=== PATIENT | female | born 1950 | race Caucasian/White ===

== ENCOUNTER 2019-09-25 06:54 | Day surgery (SDC) | payer BC, MEDICARE ==
[2019-09-20 11:54] VITALS: BMI 22.6
[~2019-09-25 06:54] MED LIST: LACTATED RINGERS 1,000 ML IV SCH; LIDOCAINE 1% (10MG/ML) FOR IV START INTRADERMA PRN
[2019-09-25] MEDS ORDERED: PROPOFOL 10 MG/ML 20 ML VIAL IV ONE (07:34)
[2019-09-25 07:37] VITALS: TEMP 97.8
[2019-09-25] MEDS ORDERED: SODIUM CHLORIDE 0.9% 1,000 ML IV ONE (08:20)
--- NOTE | 2019-09-25 09:00 | P.PCN ---
Date of Procedure: 09/25/19 Description of Procedure: BRIEF HISTORY: Patient is a 69-year-old female presenting for outpatient colonoscopy or screening for malignant neoplasm of the colon. Patient reports last colonoscopy 6 years ago. No family history of colon cancer. She has had 3 colonoscopies in the past with polyps removed from first colonoscopy but not on her last. PROCEDURE PERFORMED: Colonoscopy with polypectomy, tattoo and Endo Clip placement. PREOPERATIVE DIAGNOSIS: Screening for malignant neoplasm colon, last colonoscopy 6 years ago. ESTIMATED BLOOD LOSS: Minimal. IV sedation per Anesthesia. PROCEDURE: After informed consent was obtained, the patient, was brought into the endoscopy unit. IV sedation was administered by Anesthesia under continuous monitoring. Digital rectal examination was normal. Initially the Olympus CF-190 flexible video colonoscope was then inserted in the rectum, gradually advanced into the cecum without any difficulty. Careful examination was performed as the scope was gradually being withdrawn. Ileocecal valve and the appendiceal orifice were visualized and appeared normal, the terminal ileum was intubated and appeared normal. A large 3.5 cm flat polyp was noted in the distal ascending colon there was removed with hot snare polypectomy in piecemeal fashion. 3 clips were placed over the polypectomy site for hemostasis and injection of 4 mL of ink were used to tattoo the location. Prep was excellent. Mucosa of the cecum, ascending colon, transverse colon, descending colon, sigmoid colon, and rectum appeared otherwise normal. A few scattered diverticula were noted throughout the colon. Retroflexion was performed in the rectum and no lesions were seen. The patient tolerated the procedure well. IMPRESSION: Large flat ascending colon polyp removed in piecemeal fashion with hot snare polypectomy, tattoo and Endo Clip placement 3 at the site of polypectomy. Mild pandiverticulosis. RECOMMENDATIONS: Findings of this examination were discussed with the patient and family. Okay to resume diet and medication. Await pathology from polypectomy. Would recommend follow-up in clinic in one week for results of polypectomy and biopsies with a repeat colonoscopy in 3-6 months given piecemeal resection of the polyp.
[2019-09-25 09:02] VITALS: RESP 16
[2019-09-25 09:21] VITALS: BP 105/68; PULSE 62
== END 2019-09-25 10:00 | disposition home or self-care (01) ==
LOC: ORWHC2ENDO 06:54
PROVIDERS: ATTEND Internal Medicine
DX: Z12.11 Encounter for screening for malignant neoplasm of colon (principal); C18.2 Malignant neoplasm of ascending colon; E07.9 Disorder of thyroid, unspecified; K57.30 Diverticulosis of large intestine without perforation or abscess without bleeding; Z79.890 Hormone replacement therapy; Z98.51 Tubal ligation status; Z98.890 Other specified postprocedural states
CPT/HCPCS: 45385; 88305; J2704; 44404; 45382

== ENCOUNTER → 2019-10-01 | Outpatient (CLI) | payer MEDICARE | END | disposition home or self-care (01) | LOC: LABWHC1 14:55 | PROVIDERS: ATTEND Student in an Organized Health Care Education/Training Program | DX: U07.1 COVID-19 (principal) | CPT/HCPCS: U0003; C9803 ==

== ENCOUNTER → 2019-10-03 | Outpatient (CLI) | payer MEDICARE ==
[2019-10-03 14:58] LABS: African American GFR (CKD) >90 (>60 ml/min/1.73 sqM); Blood Urea Nitrogen 19 mg/dL (7-17); Non-African American GFR(CKD) 78 (>60 ml/min/1.73 sqM)
[2019-10-03 16:27] LABS: Basophils % (A) 1 %; Eosinophils # (A) 0.1 k/uL (0-0.7); Eosinophils % (A) 3 %; HCT 37.5 % (34.0-46.0); HGB 12.2 gm/dL (11.4-16.0); Lymphocytes # (A) 1.5 k/uL (1.0-4.8); Lymphocytes % (A) 30 %; MCH 27.3 pg (25.0-35.0); MCHC 32.4 g/dL (31.0-37.0); MCV 84.2 fL (80.0-100.0); Mean Platelet Volume 7.1; Monocytes # (A) 0.3 k/uL (0-1.0); Monocytes % (A) 7 %; Neutrophils # (A) 2.9 k/uL (1.3-7.7); Neutrophils % (A) 57 %; Platelet Count 238 k/uL (150-450); RBC 4.46 m/uL (3.80-5.40)
[2019-10-03 16:32] LABS: Albumin 4.3 g/dL (3.5-5.0); Calcium 9.6 mg/dL (8.4-10.2); Potassium 4.5 mmol/L (3.5-5.1); Total Bilirubin 0.4 mg/dL (0.2-1.3); Total Protein 6.7 g/dL (6.3-8.2)
--- NOTE | 2019-10-03 16:32 | CT ---
EXAMINATION TYPE: CT ChestAbdPelvis w con DATE OF EXAM: 10/03/2019 COMPARISON: None HISTORY: new dx of colon ca CT DLP: 531.9 mGycm CONTRAST: CT scan of the chest, abdomen and pelvis is performed without Oral Contrast and with IV Contrast, pat ient injected with 100 mL of Isovue 300. CT Chest: LUNGS: The lungs are clear and free of infiltrate or atelectasis. No pulmonary nodule or mass is det ected. No pleural effusion or CT evidence of interstitial lung disease. MEDIASTINUM: Thoracic aorta is of normal caliber. The heart is not enlarged. No evidence for media stinal mass or adenopathy. HILAR STRUCTURES: No evidence for mass. No hilar adenopathy is appreciated. OTHER: No significant abnormality. CONTRAST CT ABDOMEN AND PELVIS FINDINGS: LIVER/GB: No calcified gallstones. No space occupying hepatic lesion. Biliary tree is of normal ca liber. PANCREAS: No inflammation. No distinct mass. SPLEEN: No splenic enlargement. No lesion seen. ADRENALS: No nodule. No thickening. KIDNEYS/BLADDER: No hydronephrosis. No nephrolithiasis. No disctinct renal mass. BOWEL: Normal appendix. Metallic clip noted at the level of the mid ascending colon may be from prio r biopsy. Normal bowel caliber. No inflammation. GENITAL ORGANS: No gross abnormality. LYMPH NODES: No greater than 1cm abdominal or pelvic lymph nodes are appreciated. AORTA: No significant abnormality. OSSEOUS STRUCTURES: No significant abnormality is seen. OTHER: No significant additional abnormality is seen. IMPRESSION: 1. No CT evidence to suggest metastatic disease at this time.
== END | disposition home or self-care (01) ==
LOC: RADCTMAIN 14:20
PROVIDERS: ATTEND Student in an Organized Health Care Education/Training Program
DX: C18.2 Malignant neoplasm of ascending colon (principal)
CPT/HCPCS: 80053; 82378; 82565; 83615; 84520; 85025; 71260; 74177; 36415; Q9967

== ENCOUNTER 2019-10-09 10:45 | Inpatient (IN) | payer MEDICARE ==
[2019-10-03 18:21] VITALS: BMI 22.6
[~2019-10-09 10:45] MED LIST changes: +ALVIMOPAN 12 MG CAPSULE PO ONE; +HEPARIN SODIUM,PORCINE 5,000 UNIT/ML 1 ML VIAL SQ ONE; -LACTATED RINGERS 1,000 ML IV SCH; -LIDOCAINE 1% (10MG/ML) FOR IV START INTRADERMA PRN; +metroNIDAZOLE-NS PMX 500 MG in SALINE 1 100ML.BAG IVPB ONE
[2019-10-09] MEDS ORDERED: DEXAMETHASONE SOD PHOSPHATE 10 MG/ML 1 ML VIAL IV ONE (10:58)
[2019-10-09] MEDS ORDERED: LIDOCAINE 1% (10MG/ML) FOR IV START INTRADERMA PRN (10:58)
[2019-10-09] MEDS: LACTATED RINGERS 1,000 ML IV SCH ×3 (11:21→18:19)
[2019-10-09] MEDS ORDERED: HEPARIN SODIUM,PORCINE 5,000 UNIT/ML 1 ML VIAL ONE (11:24)
[2019-10-09] MEDS ORDERED: ONDANSETRON 4 MG/2 ML VIAL ONE (11:24)
[2019-10-09] MEDS ORDERED: fentaNYL (PF) 50 MCG/ML 2 ML AMP IVP ONE (11:54)
[2019-10-09] MEDS ORDERED: NALOXONE 0.4 MG/ML 1 ML VIAL IV PRN ×2 (12:27→17:10)
[2019-10-09] MEDS ORDERED: diphenhydrAMINE 50 MG/ML 1 ML VIAL IVP PRN (12:27)
[2019-10-09] MEDS ORDERED: INDOCYANINE GREEN 25 MG VIAL IV ONE (12:32)
[2019-10-09] MEDS ORDERED: NEOSTIGMINE 1 MG/ML 10 ML VIAL ONE (12:32)
[2019-10-09] MEDS ORDERED: GLYCOPYRROLATE 0.2 MG/ML 2 ML VIAL ONE (12:32)
[2019-10-09] MEDS ORDERED: BUPIVACAINE (PF) 0.75% 30 ML VIAL ONE (12:32)
[2019-10-09] MEDS ORDERED: fentaNYL (PF) 50 MCG/ML 2 ML AMP ONE (12:32)
[2019-10-09] MEDS ORDERED: ROCURONIUM BROMIDE 10 MG/ML 5 ML VIAL IV ONE (12:32)
[2019-10-09] MEDS ORDERED: PHENYLEPHRINE-0.9% NACL SYG 1 MG/10 ML SYRINGE ONE (12:32)
[2019-10-09] MEDS ORDERED: LIDOCAINE 1% INJ 10MG/ML (20 ML MDV) ONE (12:32)
[2019-10-09] MEDS ORDERED: PROPOFOL 10 MG/ML 20 ML VIAL IV ONE (12:32)
--- NOTE | 2019-10-09 12:57 | P.ANPRN ---
Procedure Note - Anesthesia - Epidural/Spinal Epidural Time Out Performed: Yes Date of Procedure: 10/09/19 Procedure Start Time: 11:53 Procedure Stop Time: 12:07 Location of Patient: PreOp Indication: Acute Post-Operative Pain, Requested by Surgeon Sedation Type: Sedate with meaningful contact maintained Preparation: Sterile Prep Position: Sitting Catheter Depth at Skin (cm): 12 Catheter: Indwelling Needle Guage: 18 Injectate: Test Dose Lidocaine1.5% w/1:200,000 epi Blood Aspirated: No Pain Paresthesia on Injection Noted: No Events: Uneventful and Well Tolerated (T7-T8 level, TATA at 4.5 cm)
[2019-10-09] MEDS ORDERED: BUPIVACAINE (PF) 0.5% 30 ML VIAL SQ ONE (13:04)
[2019-10-09] MEDS ORDERED: LACTATED RINGERS 1,000 ML IV ONE ×4 (13:43→17:55)
[2019-10-09] MEDS ORDERED: ONDANSETRON 4 MG/2 ML VIAL IVP ONE (17:00)
[2019-10-09] MEDS ORDERED: ONDANSETRON 4 MG/2 ML VIAL IVP PRN (17:10)
--- NOTE | 2019-10-09 17:10 | P.OP ---
Date of Procedure: 10/09/19 Preoperative Diagnosis: Colon cancer Postoperative Diagnosis: Same Procedure(s) Performed: Robotic assisted right hemicolectomy Anesthesia: DIA Surgeon: Brendan Burnett Estimated Blood Loss (ml): 25 Condition: stable Disposition: PACU Indications for Procedure: Adenocarcinoma of right colon Description of Procedure: Patient was brought into the operative suite remained in the supine position underwent general endotracheal anesthesia per Department of anesthesia she was prepped and draped in the usual sterile fashion timeout was performed correct patient correct procedure correct site was verified. A 5 mm incision was made at palmers point in the left upper quadrant. Under direct visualization the abdomen was entered with a 5 mm Visiport and insufflated no injuries were noted. A suprapubic 8 mm port was placed under direct visualization and 8 mm cephalad from this a second 8 mm port was placed under direct visualization equidistant between this port and the 5 mm port A third 8 mm port was placed. The 5 mm port was then upsized to a 12 mm port and the robot was docked. Attention was turned to the right lower quadrant the cecum was retracted anteriorly the duodenum was identified the ileocolic pedicle was identified a window was made into the retroperitoneum the duodenum was identified again through the retroperitoneum and swept posteriorly and medially. The ileocolic pedicle was then dissected and ligated with an energy sealing device. The dissection then proceeded in a medial to lateral fashion the hepato-colic ligament was taken down being sure to visualize the duodenum. There was some scar tissue from the previous tattoo noted in the descending colon at the hepatic flexure. This was taken down with aid of electrocautery and sharp dissection. The right colon was then mobilized and the terminal ileum was transected approximately 8 cm from the ileocecal valve with a 60 mm blue load stapler. The transverse was transected with a 60 mm blue load stapler preserving the middle colic artery. The mesentery was then ligated at the base with the energy sealing device in the right colon was placed in the right upper quadrant. The ileum was aligned with the transverse colon ICG dye was injected and both were noted to have good blood flow. A [id number] functional end and isoperistaltic intracorporeal anastomosis was created 3-0 Vicryl stay sutures were placed to align the small bowel to the transverse colon on enterotomy was made in the small bowel and the colon the stapler a 60 mm blue load stapler was placed the bowels were aligned and this created a common channel. Hemostasis was noted. The common enterotomy was then closed using a 3-0 vlock suture in a running fashion followed by interrupted 3-0 Vicryl sutures in a Lembert fashion. At this point the robot was undocked the specimen was removed through the 12 mm port site which was widened and an felicita wound protector was placed prior to removing the specimen. The abdomen was then copiously irrigated and suctioned until clear hemostasis was noted all ports removed the 12 mm port site was closed in 2 layers of 0 Vicryl for the fascia followed by 4-0 Monocryl subcuticular closure for the skin on all the port sites. Sterile dressing was applied patient tolerated the procedure well there are no apparent complications
[2019-10-09] MEDS: ROPIVACAINE 250 MG, fentaNYL (PF) 1,250 MCG in SODIUM CHLORIDE 0.9% 175 ML EPIDURAL PRN (17:16)
[2019-10-09] MEDS: ACETAMINOPHEN IV (For NPO) 1,000 MG in EMPTY BAG 1 BAG IVPB ONE ×2 (17:35→17:50)
[2019-10-09] MEDS: ONDANSETRON 4 MG/2 ML VIAL IVP PRN (19:46)
--- NOTE | 2019-10-09 21:38 | P.CONS ---
History of Present Illness - Reason for Consult Consult date: 10/09/19 medical management Requesting physician: Brendan Burnett - Chief Complaint Abdominal surgery - History of Present Illness Consultation: This is a 69-year-old patient follows a Dr. Real. Patient on September 24 had undergone colonoscopy by Dr. Elizabeth. Was found of a polyp that was removed. 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 Patient today underwent a right hemicolectomy by Dr. burnett. Postprocedure slight abdominal discomfort. No nausea vomiting. Breathing is stable. Denies any cardiac history. Laying in bed. Patient has an abdominal binder. On nothing by mouth diet. Getting IV fluids. No fever no chills. Review of systems: GEN.: Tired EYES: None HEENT: None NECK: None RESPIRATORY: None CARDIOVASCULAR: None GASTROINTESTINAL: As above GENITOURINARY: None MUSCULOSKELETAL: None LYMPHATICS: None HEMATOLOGICAL: None PSYCHIATRY: None NEUROLOGICAL: None Past medical history to include: Hypothyroid, malignant-chronic Polyp, osteoarthritis the knees Social history: Does not smoke. Alcohol occasionally. Family history: Reviewed, noncontributory to presentation Physical examination: VITAL SIGNS: 97.7, 77, 16, 118/69, 96% room air GENERAL: [BMI 22.4, laying in bed, awake. EYES: Pupils equal. Conjunctiva normal. HEENT: External appearance of nose and ears normal, oral cavity grossly normal. NECK: JVD not raised; masses not palpable. HEART: First and second heart sounds are normal; no edema. LUNGS: Respiratory rate normal; clear to auscultation. ABDOMEN: Soft, tender, binder in place, liver spleen not palpable, no masses palpable. MUSCLE skeletal: Evidence of OA PSYCH: Alert and oriented x3; mood and affect normal. NEUROLOGICAL: Cranial nerves grossly intact; no facial asymmetry, power and sensation grossly intact. LYMPHATICS: No lymph nodes palpable in the axilla and neck INVESTIGATIONS, reviewed in the clinical context: From October 02: White count 5 hemoglobin 12.2 platelets 238 potassium 4.5 creatinine 0.79 Assessment: -Right hemicolectomy for colon polyp that came back showing adenocarcinoma with high-grade dysplasia -Primary on to 30s. The knees -Hypothyroid Plan: Patient got epidural. Also getting IV Ancef and Flagyl. Home medications resumed. Getting IV fluids. Venodyne boots for DVT prophylaxis. Care was discussed with the patient. Questions were answered. Thank you Dr. burnett Past Medical History Past Medical History: Thyroid Disorder Additional Past Medical History / Comment(s): past hx. colon polyps History of Any Multi-Drug Resistant Organisms: None Reported Past Surgical History: Orthopedic Surgery, Tubal Ligation Additional Past Surgical History / Comment(s): cystoscopy w/ureter surg., knee surg., ORIF wrist Past Anesthesia/Blood Transfusion Reactions: Postoperative Nausea & Vomiting (PONV) Past Psychological History: No Psychological Hx Reported Smoking Status: Never smoker Past Alcohol Use History: Occasional Past Drug Use History: None Reported - Past Family History Mother Family Medical History: No Reported History Medications and Allergies Home Medications Medication Instructions Recorded Confirmed Type Levothyroxine Sodium [Synthroid] 88 mcg PO DAILY 11/23/13 10/09/19 History Turmeric Root Extract [Turmeric] 500 mg PO DAILY 09/20/19 10/09/19 History Cholecalciferol [Vitamin D3 (25 1,000 unit PO DAILY 10/03/19 10/09/19 History Mcg = 1000 Iu)] Estradiol [Vagifem] 10 mcg VG DIRECTED 10/03/19 10/09/19 History Fluticasone Nasal [place] [Flonase 1 spray EA NOSTRIL HS 10/03/19 10/09/19 History Nasal [place]] Levocetirizine Dihydrochloride 5 mg PO HS 10/03/19 10/09/19 History [Xyzal] Allergies Allergy/AdvReac Type Severity Reaction Status Date / Time No Known Allergies Allergy Verified 10/09/19 11:06 Physical Exam Vitals: Vital Signs Temp Pulse Resp BP Pulse Ox 10/09/19 19:53 16 10/09/19 17:43 52 L 16 98/62 92 L 10/09/19 17:28 55 L 16 100/59 92 L 10/09/19 17:13 56 L 16 97/60 93 L 10/09/19 16:57 96.8 F L 66 18 105/61 92 L 10/09/19 12:09 67 15 143/74 99 10/09/19 11:20 97.7 F 77 16 118/69 96 Intake and Output 10/09/19 10/09/19 10/09/19 06:59 14:59 22:59 Intake Total 3950 353.8 Output Total 200 Balance 3950 153.8 Intake: IV 3950 353.8 Output: Urine 175 Estimated Blood Loss 25 Other: Voiding Method Incontinent Weight 62.9 kg 62.9 kg Results Labs: Abnormal Lab Results - Last 24 Hours (Table) 10/04/19 Range/Units 13:13 Crossmatch See Detail
[2019-10-09] MEDS: FAMOTIDINE 20 MG/2 ML VIAL IV SCH (22:07)
[2019-10-10] MEDS: metroNIDAZOLE-NS PMX 500 MG in SALINE 1 100ML.BAG IVPB SCH ×2 (00:22→08:04)
[2019-10-10] MEDS: LACTATED RINGERS 1,000 ML IV SCH ×3 (00:24→22:01)
[2019-10-10] MEDS: LEVOTHYROXINE 88 MCG TAB PO SCH (05:37)
--- NOTE | 2019-10-10 07:02 | P.PN ---
Progress Note - Text 10/10/19 648am 69-year-old female status post bowel resection. Patient has an epidural catheter for postop pain control with the solution running at 6 mL an hour with a VAS of 1. No motor or sensory deficits noted. Patient has mild complaints of nausea but does not have an NG tube. Plan to continue epidural infusion
[2019-10-10] MEDS: ALVIMOPAN 12 MG CAPSULE PO SCH ×2 (08:03→21:58)
[2019-10-10] MEDS: FAMOTIDINE 20 MG/2 ML VIAL IV SCH ×2 (08:03→21:58)
[2019-10-10] MEDS: ENOXAPARIN 40 MG/0.4 ML SYRINGE SQ SCH (08:04)
[2019-10-10 08:50] LABS: Basophils % (A) 0 %; Eosinophils % (A) 0 %; HCT 30.9 % (34.0-46.0); Lymphocytes # (A) 0.7 k/uL (1.0-4.8); Lymphocytes % (A) 12 %; MCH 27.3 pg (25.0-35.0); MCHC 32.5 g/dL (31.0-37.0); MCV 83.8 fL (80.0-100.0); Mean Platelet Volume 7.3; Monocytes # (A) 0.5 k/uL (0-1.0); Monocytes % (A) 8 %; Neutrophils % (A) 79 %; Platelet Count 184 k/uL (150-450); RBC 3.69 m/uL (3.80-5.40); RDW 12.8 % (11.5-15.5); WBC 6.3 k/uL (3.8-10.6)
[2019-10-10 08:57] LABS: ALT 10 U/L (4-34); AST 23 U/L (14-36); African American GFR (CKD) >90 (>60 ml/min/1.73 sqM); Albumin 2.9 g/dL (3.5-5.0); Alkaline Phosphatase 34 U/L (38-126); Anion Gap 5 mmol/L; Blood Urea Nitrogen 10 mg/dL (7-17); Calcium 8.2 mg/dL (8.4-10.2); Carbon Dioxide 25 mmol/L (22-30); Chloride 101 mmol/L (98-107); Glucose 104 mg/dL (74-99); Non-African American GFR(CKD) >90 (>60 ml/min/1.73 sqM); Potassium 4.3 mmol/L (3.5-5.1); Sodium 131 mmol/L (137-145); Total Bilirubin 0.3 mg/dL (0.2-1.3)
--- NOTE | 2019-10-10 10:59 | P.PN ---
Subjective Progress Note Date: 10/10/19 Patient is doing well this morning. She did have some nausea last night. Pain is well controlled. VSSAF. No flatus or BM Objective - Vital Signs Vital signs: Vital Signs Temp 98.7 F 10/10/19 07:08 Pulse 69 10/10/19 07:08 Resp 17 10/10/19 07:08 BP 99/62 10/10/19 07:08 Pulse Ox 93 L 10/10/19 07:08 Intake & Output 10/09/19 10/10/19 10/10/19 18:59 06:59 18:59 Intake Total 4303.8 900 Output Total 200 600 Balance 4103.8 -600 900 Weight 62.9 kg 62.9 kg Intake: IV 4303.8 900 Lactated Ringers 1,000 ml 800 @ 100 mls/hr IV .Q10H [facility] Rx#:[id number] metroNIDAZOLE-NS PMX 500 100 mg In Saline 1 100ml.bag @ 100 mls/hr IVPB Q8HR [facility] Rx#:[id number] Output: Urine 175 600 Estimated Blood Loss 25 Other: Voiding Method Incontinent Indwelling Catheter - Constitutional General appearance: Present: cooperative - Respiratory Details: Nonlabored - Cardiovascular Rhythm: regular - Gastrointestinal Gastrointestinal Comment(s): S/ND expected TTP. Incisions CDI - Psychiatric Psychiatric: Present: A&O x's 3 - Labs CBC & Chem 7: 10/10/19 07:25 10/10/19 07:25 Labs: Abnormal Lab Results - Last 24 Hours (Table) 10/04/19 10/10/19 10/10/19 Range/Units 13:13 07:25 07:25 RBC 3.69 L (3.80-5.40) m/uL Hgb 10.0 L D (11.4-16.0) gm/dL Hct 30.9 L (34.0-46.0) % Lymphocytes # 0.7 L (1.0-4.8) k/uL Sodium 131 L (137-145) mmol/L Glucose 104 H (74-99) mg/dL Calcium 8.2 L (8.4-10.2) mg/dL Alkaline Phosphatase 34 L (38-126) U/L Total Protein 5.0 L (6.3-8.2) g/dL Albumin 2.9 L (3.5-5.0) g/dL Crossmatch See Detail Assessment and Plan Assessment: POD#1 Robotic assisted right hemicolectomy Plan: Patient is doing well, continue with ice chips and sips as tolerated. Instructed the patient to use IS and encouraged ambulation and up to chair. Lovenox and SCD for DVT prophylaxis. Await return of bowel function
--- NOTE | 2019-10-10 17:16 | P.PN ---
Progress Note - Text Progress Note Date: 10/10/19 - Chief Complaint Abdominal surgery Consultation: This is a 69-year-old patient follows a Dr. Real. Patient on September 24 had undergone colonoscopy by Dr. Elizabeth. Was found of a polyp that was removed. 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 Patient today underwent a right hemicolectomy by Dr. shea. Postprocedure slight abdominal discomfort. No nausea vomiting. Breathing is stable. Denies any cardiac history. Laying in bed. Patient has an abdominal binder. On nothing by mouth diet. Getting IV fluids. No fever no chills. Today-sitting up. Feeling a bit better. Remains nothing by mouth except for ice chips. No flatus. No nausea vomiting. Pain control. Review of systems: Was done for constitutional, cardiovascular, GI, pulmonary. relevant finding as above Active Medications Alvimopan (Entereg) 12 mg PO BID [facility] Stop: 10/16/19 21:01 Last Admin: 10/10/19 08:03 Dose: 12 mg Documented by: Diphenhydramine HCl (Benadryl) 25 mg IVP Q6HR PRN PRN Reason: Itching Enoxaparin Sodium (Lovenox) 40 mg SQ DAILY [facility] Last Admin: 10/10/19 08:04 Dose: 40 mg Documented by: Famotidine (Pepcid) 20 mg IV BID [facility] Last Admin: 10/10/19 08:03 Dose: 20 mg Documented by: Ropivacaine 250 mg/ Fentanyl Citrate 1,250 mcg/ Sodium Chloride 250 mls @ 0 mls/hr EPIDURAL .Q0M PRN; Protocol PRN Reason: Pain Control Last Admin: 10/09/19 17:16 Dose: 3.8 mls Documented by: Lactated Ringer's (Lactated Ringers) 1,000 mls @ 100 mls/hr IV .Q10H [facility] Last Admin: 10/10/19 12:13 Dose: 100 mls/hr Documented by: Levothyroxine Sodium (Synthroid) 88 mcg PO DAILY@0630 [facility] Last Admin: 10/10/19 05:37 Dose: 88 mcg Documented by: Lidocaine HCl (.Xylocaine 1% Inj (10mg/Ml) For Iv Start) 0.1 ml INTRADERMA PER PROTOCOL PRN PRN Reason: IV Start Last Admin: 10/09/19 11:20 Dose: 0.1 ml Documented by: Naloxone HCl (Narcan) 0.2 mg IV Q2M PRN PRN Reason: Opioid Reversal Ondansetron HCl (Zofran) 4 mg IVP Q8HR PRN PRN Reason: Nausea And Vomiting Last Admin: 10/09/19 19:46 Dose: 4 mg Documented by: Physical examination: VITAL SIGNS: 98.7, 69, 17, 99/62, 93% room air GENERAL: Laying in bed, comfortable EYES: Pupils equal. Conjunctiva normal. HEENT: External appearance of nose and ears normal, oral cavity grossly normal. NECK: JVD not raised; masses not palpable. HEART: First and second heart sounds are normal; no edema. LUNGS: Respiratory rate normal; clear to auscultation. ABDOMEN: Soft, mild tender, no guarding rigidity, binder in place, liver spleen not palpable, no masses palpable. MUSCLE skeletal: Evidence of OA PSYCH: Alert and oriented x3; mood and affect normal. INVESTIGATIONS, reviewed in the clinical context: White count 6.3 hemoglobin 10 potassium 4.3 creatinine 0.5 to albumin 2.9 From October 02: White count 5 hemoglobin 12.2 platelets 238 potassium 4.5 creatinine 0.79 Assessment: -Right hemicolectomy for colon polyp that came back showing adenocarcinoma with high-grade dysplasia -Primary osteoarthritis The knees -Hypothyroid -Hypoalbuminemia-acute phase reactant -Mild hyponatremia -Acute postop blood loss anemia expected from surgery Plan: Remains on epidural. Also IV Ancef and Flagyl. Getting IV fluids. Venodyne boots for DVT prophylaxis. Care was discussed with the patient. Thank you Dr. shea
[2019-10-10] MEDS: ROPIVACAINE 250 MG, fentaNYL (PF) 1,250 MCG in SODIUM CHLORIDE 0.9% 175 ML EPIDURAL PRN (23:10)
[2019-10-11] MEDS: LEVOTHYROXINE 88 MCG TAB PO SCH (06:02)
[2019-10-11] MEDS: ONDANSETRON 4 MG/2 ML VIAL IVP PRN ×2 (06:04→14:57)
--- NOTE | 2019-10-11 07:11 | P.PN ---
Progress Note - Text Date: 10/11/2019 Time: The patient is status post, bowel resection, postoperative day number 2 The patient has no complaintsof headache. The patient has incurred some mild nausea, this was treated this morning,the patient is having some relief. The patient does not complain of any lower extremity numbness or weakness. The epidural is running at[6] mL per hour. VAS 0-1-10. The epidural will be maintained and adjusted as needed.
[2019-10-11] MEDS: LACTATED RINGERS 1,000 ML IV SCH ×2 (08:10→21:13)
[2019-10-11] MEDS: FAMOTIDINE 20 MG/2 ML VIAL IV SCH ×2 (08:10→21:13)
[2019-10-11] MEDS: ENOXAPARIN 40 MG/0.4 ML SYRINGE SQ SCH (08:10)
[2019-10-11] MEDS: ALVIMOPAN 12 MG CAPSULE PO SCH (08:19)
--- NOTE | 2019-10-11 14:09 | P.PN ---
Subjective Progress Note Date: 10/11/19 Patient is doing very well nausea is improved somewhat, she is passing BM x 2. Pain is well controlled. Ambulating in halls. Using IS Objective - Vital Signs Vital signs: Vital Signs Temp 98.3 F 10/11/19 07:00 Pulse 75 10/11/19 07:00 Resp 16 10/11/19 07:00 BP 120/71 10/11/19 07:00 Pulse Ox 96 10/11/19 07:00 Intake & Output 10/10/19 10/11/19 10/11/19 18:59 06:59 18:59 Intake Total 900 Output Total 550 Balance 900 -550 Intake: IV 900 Lactated Ringers 1,000 ml 800 @ 100 mls/hr IV .Q10H [facility] Rx#:[id number] metroNIDAZOLE-NS PMX 500 100 mg In Saline 1 100ml.bag @ 100 mls/hr IVPB Q8HR [facility] Rx#:[id number] Output: Urine 550 Other: Voiding Method Indwelling Catheter Indwelling Catheter Indwelling Catheter # Bowel Movements 1 - Constitutional General appearance: Present: cooperative - Respiratory Details: nonlabored - Cardiovascular Rhythm: regular - Gastrointestinal Gastrointestinal Comment(s): S/NT/ND Incisions are CDI - Labs CBC & Chem 7: 10/10/19 07:25 10/10/19 07:25 Assessment and Plan Assessment: POD#2 Robotic assisted right hemicolectomy Plan: Patient may start on a clear liquid diet as tolerated. DC epidural tomorrow and anticipate DC home when patient is tolerating diet, possibly tomorrow. DC cohen when epidural is DC. Continue ambulating in halls and IS. Lovenox for DVT prophy.
--- NOTE | 2019-10-11 18:06 | P.PN ---
Progress Note - Text Progress Note Date: 10/11/19 - Chief Complaint Abdominal surgery Consultation: This is a 69-year-old patient follows a Dr. Real. Patient on September 24 had undergone colonoscopy by Dr. Elizabeth. Was found of a polyp that was removed. 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 Patient today underwent a right hemicolectomy by Dr. shea. Postprocedure slight abdominal discomfort. No nausea vomiting. Breathing is stable. Denies any cardiac history. Laying in bed. Patient has an abdominal binder. On nothing by mouth diet. Getting IV fluids. No fever no chills. Today-. had a bowel movement.. Pain control. Did sit up in a chair. No nausea vomiting. Review of systems: Was done for constitutional, cardiovascular, GI, pulmonary. relevant finding as above Active Medications Diphenhydramine HCl (Benadryl) 25 mg IVP Q6HR PRN PRN Reason: Itching Enoxaparin Sodium (Lovenox) 40 mg SQ DAILY [facility] Last Admin: 10/11/19 08:10 Dose: 40 mg Documented by: Famotidine (Pepcid) 20 mg IV BID [facility] Last Admin: 10/11/19 08:10 Dose: 20 mg Documented by: Ropivacaine 250 mg/ Fentanyl Citrate 1,250 mcg/ Sodium Chloride 250 mls @ 0 mls/hr EPIDURAL .Q0M PRN; Protocol PRN Reason: Pain Control Last Admin: 10/10/19 23:10 Dose: 6 mls/hr Documented by: Lactated Ringer's (Lactated Ringers) 1,000 mls @ 100 mls/hr IV .Q10H [facility] Last Admin: 10/11/19 08:10 Dose: 100 mls/hr Documented by: Levothyroxine Sodium (Synthroid) 88 mcg PO DAILY@0630 [facility] Last Admin: 10/11/19 06:02 Dose: 88 mcg Documented by: Lidocaine HCl (.Xylocaine 1% Inj (10mg/Ml) For Iv Start) 0.1 ml INTRADERMA PER PROTOCOL PRN PRN Reason: IV Start Last Admin: 10/09/19 11:20 Dose: 0.1 ml Documented by: Naloxone HCl (Narcan) 0.2 mg IV Q2M PRN PRN Reason: Opioid Reversal Ondansetron HCl (Zofran) 4 mg IVP Q8HR PRN PRN Reason: Nausea And Vomiting Last Admin: 10/11/19 14:57 Dose: 4 mg Documented by: Physical examination: VITAL SIGNS: 98.5, 60, 16, 1 35/80, 95% room air GENERAL: Propper in bed, comfortable EYES: Pupils equal. Conjunctiva normal. HEENT: External appearance of nose and ears normal, oral cavity grossly normal. NECK: JVD not raised; masses not palpable. HEART: First and second heart sounds are normal; no edema. LUNGS: Respiratory rate normal; clear to auscultation. ABDOMEN: Soft, mild tender, no guarding rigidity, binder in place, liver spleen not palpable, no masses palpable. MUSCLE skeletal: Evidence of OA PSYCH: Alert and oriented x3; mood and affect normal. INVESTIGATIONS, reviewed in the clinical context: White count 6.3 hemoglobin 10 potassium 4.3 creatinine 0.5 to albumin 2.9 From October 02: White count 5 hemoglobin 12.2 platelets 238 potassium 4.5 creatinine 0.79 Assessment: -Right hemicolectomy for colon polyp that came back showing adenocarcinoma with high-grade dysplasia -Primary osteoarthritis The knees -Hypothyroid -Hypoalbuminemia-acute phase reactant -Mild hyponatremia -Acute postop blood loss anemia expected from surgery Plan: Remains on epidural. Getting IV fluids. patient be started on clear liquids tonight per surgery. Discussed with patient. encouraged up in a chair and walk with assistance. Thank you Dr. shea
[2019-10-12] MEDS: ROPIVACAINE 250 MG, fentaNYL (PF) 1,250 MCG in SODIUM CHLORIDE 0.9% 175 ML EPIDURAL PRN (03:31)
[2019-10-12] MEDS: LACTATED RINGERS 1,000 ML IV SCH ×2 (05:19→16:15)
[2019-10-12] MEDS: LEVOTHYROXINE 88 MCG TAB PO SCH (05:56)
[2019-10-12 07:09] VITALS: PULSE 73; RESP 20
[2019-10-12 08:43] LABS: Basophils % (A) 1 %; Eosinophils % (A) 1 %; HGB 10.4 gm/dL (11.4-16.0); Lymphocytes # (A) 0.9 k/uL (1.0-4.8); Lymphocytes % (A) 15 %; MCH 27.3 pg (25.0-35.0); MCHC 32.5 g/dL (31.0-37.0); MCV 83.9 fL (80.0-100.0); Mean Platelet Volume 7.6; Monocytes # (A) 0.4 k/uL (0-1.0); Monocytes % (A) 8 %; Neutrophils # (A) 4.4 k/uL (1.3-7.7); Neutrophils % (A) 76 %; Platelet Count 204 k/uL (150-450); RBC 3.81 m/uL (3.80-5.40); RDW 12.7 % (11.5-15.5); WBC 5.9 k/uL (3.8-10.6)
[2019-10-12 08:47] LABS: African American GFR (CKD) >90 (>60 ml/min/1.73 sqM); Anion Gap 5 mmol/L; Blood Urea Nitrogen 10 mg/dL (7-17); Carbon Dioxide 24 mmol/L (22-30); Chloride 99 mmol/L (98-107); Glucose 85 mg/dL (74-99); Non-African American GFR(CKD) >90 (>60 ml/min/1.73 sqM); Potassium 3.9 mmol/L (3.5-5.1); Sodium 128 mmol/L (137-145)
[2019-10-12] MEDS: FAMOTIDINE 20 MG/2 ML VIAL IV SCH (08:56)
[2019-10-12] MEDS: ENOXAPARIN 40 MG/0.4 ML SYRINGE SQ SCH (08:56)
--- NOTE | 2019-10-12 09:37 | P.PN ---
Subjective Progress Note Date: 10/12/19 Patient is doing very well nausea is resolved, she is tolerating clears, she is passing flatus and BM. Pain is well controlled. Ambulating in halls. Using IS Objective - Vital Signs Vital signs: Vital Signs Temp 98.2 F 10/12/19 07:00 Pulse 73 10/12/19 07:00 Resp 20 10/12/19 07:00 BP 131/84 10/12/19 07:00 Pulse Ox 93 L 10/12/19 07:00 Intake & Output 10/11/19 10/12/19 10/12/19 18:59 06:59 18:59 Intake Total 870.1 200 Output Total 1800 Balance -929.9 200 Intake: IV 400 Lactated Ringers 1,000 ml 400 @ 100 mls/hr IV .Q10H VERONICA Rx#:[id number] Intake, IV Titration 170.1 Amount Ropivacaine 250 mg 170.1 fentaNYL (PF) 1,250 mcg In Sodium Chloride 0.9% 175 ml @ Per Protocol EPIDURAL .Q0M PRN Rx#: [id number] Oral 300 200 Output: Urine 1800 Other: Voiding Method Indwelling Catheter Indwelling Catheter Indwelling Catheter # Voids 3 1 # Bowel Movements 1 - Constitutional General appearance: Present: cooperative - Respiratory Details: non labored - Cardiovascular Rhythm: regular - Gastrointestinal Gastrointestinal Comment(s): s/nt/nd incisions CDI - Psychiatric Psychiatric: Present: A&O x's 3 - Labs CBC & Chem 7: 10/12/19 08:00 10/12/19 08:00 Labs: Abnormal Lab Results - Last 24 Hours (Table) 10/12/19 10/12/19 Range/Units 08:00 08:00 Hgb 10.4 L (11.4-16.0) gm/dL Hct 32.0 L (34.0-46.0) % Lymphocytes # 0.9 L (1.0-4.8) k/uL Sodium 128 L (137-145) mmol/L Creatinine 0.51 L (0.52-1.04) mg/dL Calcium 8.0 L (8.4-10.2) mg/dL Assessment and Plan Assessment: POD#3 Robotic assisted right hemicolectomy Plan: Epidural being DC today, cohen to be DC after epidural out. advance diet to soft, anticipate DC home later today when tolerating diet.
--- NOTE | 2019-10-12 14:31 | P.PN ---
Progress Note - Text Progress Note Date: 10/12/19 patient had a lumbar epidural placed on 10/09 for a bowel resection surgery. she reports good pain relief 4-06/16 she denies any numbness or weakness in Lower extremities she denies any back pain or headaches. the epidural catheter was d/radha half an hour before I visited the patient. she was ambulating and doing well.
[2019-10-12 15:08] VITALS: BP 128/81; TEMP 98.7
[2019-10-12] MEDS ORDERED: ACETAMINOPHEN TAB 325 MG TAB PO STA (15:53)
--- NOTE | 2019-10-12 22:29 | P.PN ---
Progress Note - Text Progress Note Date: 10/12/19 - Chief Complaint Abdominal surgery Consultation: This is a 69-year-old patient follows a Dr. Real. Patient on September 24 had undergone colonoscopy by Dr. Elizabeth. Was found of a polyp that was removed. 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 Patient today underwent a right hemicolectomy by Dr. shea. Postprocedure slight abdominal discomfort. No nausea vomiting. Breathing is stable. Denies any cardiac history. Laying in bed. Patient has an abdominal binder. On nothing by mouth diet. Getting IV fluids. No fever no chills. Today-. Doing well. Pain control. Has had a bowel movement. Has been out of bed. Review of systems: Was done for constitutional, cardiovascular, GI, pulmonary. relevant finding as above Current medications reviewed in today's electronic records Physical examination: VITAL SIGNS: 98.7, 73, 20, 128/81, 95% on room air GENERAL: Sitting up comfortable EYES: Pupils equal. Conjunctiva normal. HEENT: External appearance of nose and ears normal, oral cavity grossly normal. NECK: JVD not raised; masses not palpable. HEART: First and second heart sounds are normal; no edema. LUNGS: Respiratory rate normal; clear to auscultation. ABDOMEN: Soft, no tenderness, binder in place, liver spleen not palpable, no masses palpable. MUSCLE skeletal: Evidence of OA PSYCH: Alert and oriented x3; mood and affect normal. INVESTIGATIONS, reviewed in the clinical context: White count 5.9 and he will globin 10.4 potassium 3.9 sodium 128 From October 02: White count 5 hemoglobin 12.2 platelets 238 potassium 4.5 creatinine 0.79 Assessment: -Right hemicolectomy for colon polyp that came back showing adenocarcinoma with high-grade dysplasia -Primary osteoarthritis The knees -Hypothyroid -Hypoalbuminemia-acute phase reactant -Mild hyponatremia -Acute postop blood loss anemia expected from surgery Plan: -Epidural to be removed to soft own. Doing well. Oral intake improving. Using a walker to get about. Thank you Dr. shea
== END 2019-10-12 18:12 | disposition home or self-care (01) | DRG 330 ==
LOC: 2ORMAIN 10:45 → 4SSUR 17:36
PROVIDERS: ADMIT Student in an Organized Health Care Education/Training Program; ATTEND Student in an Organized Health Care Education/Training Program
PROC: 8E0W4CZ Robotic Assisted Procedure of Trunk Region, Percutaneous Endoscopic Approach (ICD-10-PCS; principal; 2019-10-09 12:30)
PROC: 0DTF4ZZ Resection of Right Large Intestine, Percutaneous Endoscopic Approach (ICD-10-PCS; principal; 2019-10-09 12:30)
DX: C18.2 Malignant neoplasm of ascending colon (principal); D62 Acute posthemorrhagic anemia; E87.1 Hypo-osmolality and hyponatremia; E03.9 Hypothyroidism, unspecified; E88.09 Other disorders of plasma-protein metabolism, not elsewhere classified; M17.0 Bilateral primary osteoarthritis of knee; Z90.710 Acquired absence of both cervix and uterus; Z98.51 Tubal ligation status; Z82.49 Family history of ischemic heart disease and other diseases of the circulatory system; Z79.899 Other long term (current) drug therapy; Z79.890 Hormone replacement therapy; Z98.890 Other specified postprocedural states; Z79.51 Long term (current) use of inhaled steroids
CPT/HCPCS: 80048; 80053; 85025; 86850; 86900; 86901; 86920; 88309

== ENCOUNTER → 2020-01-04 | Outpatient (CLI) | payer MEDICARE ==
[2020-01-04 08:32] LABS: Basophils % (A) 1 %; Eosinophils # (A) 0.1 k/uL (0-0.7); Eosinophils % (A) 5 %; HCT 37.2 % (34.0-46.0); HGB 11.8 gm/dL (11.4-16.0); Lymphocytes # (A) 1.4 k/uL (1.0-4.8); Lymphocytes % (A) 46 %; MCH 26.4 pg (25.0-35.0); MCHC 31.7 g/dL (31.0-37.0); MCV 83.2 fL (80.0-100.0); Mean Platelet Volume 6.9; Monocytes # (A) 0.2 k/uL (0-1.0); Monocytes % (A) 8 %; Neutrophils # (A) 1.1 k/uL (1.3-7.7); Neutrophils % (A) 37 %; Platelet Count 219 k/uL (150-450); RBC 4.47 m/uL (3.80-5.40); RDW 13.4 % (11.5-15.5); WBC 3.1 k/uL (3.8-10.6)
[2020-01-04 08:39] LABS: African American GFR (CKD) >90 (>60 ml/min/1.73 sqM); Anion Gap 4 mmol/L; Blood Urea Nitrogen 22 mg/dL (7-17); Carbon Dioxide 28 mmol/L (22-30); Chloride 103 mmol/L (98-107); Glucose 103 mg/dL (74-99); Non-African American GFR(CKD) 83 (>60 ml/min/1.73 sqM); Potassium 4.6 mmol/L (3.5-5.1); Sodium 135 mmol/L (137-145)
== END | disposition home or self-care (01) ==
LOC: LABPAT 07:56
PROVIDERS: ATTEND Obstetrics & Gynecology
DX: Z01.818 Encounter for other preprocedural examination (principal); N81.11 Cystocele, midline; N81.6 Rectocele; Z79.899 Other long term (current) drug therapy
CPT/HCPCS: 36415; 80051; 82565; 82947; 83735; 84520; 85025; 87086

== ENCOUNTER → 2020-01-11 | Outpatient (CLI) | payer MEDICARE ==
[2020-01-11 15:11] LABS: Basophils % (A) 1 %; Eosinophils # (A) 0.1 k/uL (0-0.7); Eosinophils % (A) 2 %; HCT 37.8 % (34.0-46.0); HGB 12.2 gm/dL (11.4-16.0); Lymphocytes # (A) 1.3 k/uL (1.0-4.8); Lymphocytes % (A) 33 %; MCH 26.4 pg (25.0-35.0); MCHC 32.3 g/dL (31.0-37.0); MCV 81.7 fL (80.0-100.0); Mean Platelet Volume 6.8; Monocytes # (A) 0.3 k/uL (0-1.0); Monocytes % (A) 7 %; Neutrophils # (A) 2.1 k/uL (1.3-7.7); Neutrophils % (A) 54 %; Platelet Count 230 k/uL (150-450); RBC 4.63 m/uL (3.80-5.40); RDW 13.3 % (11.5-15.5); WBC 3.9 k/uL (3.8-10.6)
== END | disposition home or self-care (01) ==
LOC: LABWHC1 13:49
PROVIDERS: ATTEND Physician Assistant
DX: D72.819 Decreased white blood cell count, unspecified (principal)
CPT/HCPCS: 36415; 85025

== ENCOUNTER 2020-01-14 07:18 | Day surgery (SDC) | payer MEDICARE ==
[2020-01-07 15:06] VITALS: BMI 20.9
[~2020-01-14 07:18] MED LIST changes: -ALVIMOPAN 12 MG CAPSULE PO ONE; +DEXAMETHASONE SOD PHOSPHATE 4 MG/ML 1 ML VIAL IV ONE; -HEPARIN SODIUM,PORCINE 5,000 UNIT/ML 1 ML VIAL SQ ONE; +HYDROmorphone 0.5 MG/0.5 ML SYRINGE IVP PRN; +LIDOCAINE 1% (10MG/ML) FOR IV START INTRADERMA PRN; +MIDAZOLAM 2 MG/2 ML VIAL IV PRN; +ONDANSETRON 4 MG/2 ML VIAL IVP ONE; -metroNIDAZOLE-NS PMX 500 MG in SALINE 1 100ML.BAG IVPB ONE
[2020-01-14] MEDS: LACTATED RINGERS 1,000 ML IV SCH ×2 (08:07→20:17)
[2020-01-14] MEDS ORDERED: MIDAZOLAM 2 MG/2 ML VIAL IV ONE (08:49)
[2020-01-14] MEDS ORDERED: LIDOCAINE 1% INJ 10MG/ML (20 ML MDV) ONE (09:35)
[2020-01-14] MEDS ORDERED: SUCCINYLCHOLINE CHLORIDE 100 MG/5 ML SYR IV ONE (09:35)
[2020-01-14] MEDS ORDERED: fentaNYL (PF) 50 MCG/ML 2 ML AMP ONE (09:35)
[2020-01-14] MEDS ORDERED: PROPOFOL 10 MG/ML 20 ML VIAL IV ONE (09:35)
[2020-01-14] MEDS ORDERED: ePHEDrine SULFATE/0.9% NACL/PF 50 MG/5 ML SYRINGE IV ONE (09:35)
[2020-01-14] MEDS ORDERED: MIDAZOLAM 2 MG/2 ML VIAL ONE (09:35)
[2020-01-14] MEDS ORDERED: VASOPRESSIN 20 UNIT/ML 1 ML VIAL SQ ONE (09:54)
[2020-01-14] MEDS ORDERED: NALOXONE 0.4 MG/ML 1 ML VIAL IV PRN (09:57)
[2020-01-14] MEDS ORDERED: diphenhydrAMINE 50 MG/ML 1 ML VIAL IVP PRN ×2 (09:57→11:00)
[2020-01-14] MEDS ORDERED: LACTATED RINGERS 1,000 ML IV ONE (09:59)
--- NOTE | 2020-01-14 09:59 | P.ANPRN ---
Procedure Note - Anesthesia - Epidural/Spinal Spinal Time Out Performed: Yes Date of Procedure: 01/14/20 Procedure Start Time: 08:48 Procedure Stop Time: 09:02 Location of Patient: PreOp Indication: Acute Post-Operative Pain Sedation Type: Sedate with meaningful contact maintained Preparation: Sterile Prep Position: Sitting Catheter: None Needle Guage: 25 (Duramorph 200mcg, fentanyl 25mcg) Blood Aspirated: No Pain Paresthesia on Injection Noted: No Events: Uneventful and Well Tolerated
[2020-01-14] MEDS ORDERED: BACITRACIN ZINC 500 UNIT/GM OINT 28.4 GM TUBE TOPICAL ONE ×2 (10:09→10:43)
[2020-01-14] MEDS ORDERED: IBUPROFEN 600 MG TAB PO PRN (11:00)
[2020-01-14] MEDS ORDERED: METOCLOPRAMIDE 5 MG/ML 2 ML VIAL IVP PRN (11:00)
[2020-01-14] MEDS ORDERED: ZOLPIDEM 5 MG TAB PO PRN (11:00)
[2020-01-14] MEDS ORDERED: SIMETHICONE 80 MG CHEWABLE PO PRN (11:00)
[2020-01-14] MEDS ORDERED: KETOROLAC 15 MG/ML 1 ML VIAL IVP PRN (11:00)
[2020-01-14] MEDS ORDERED: ONDANSETRON 4 MG/2 ML VIAL IVP PRN (11:00)
--- NOTE | 2020-01-14 11:00 | P.OP ---
Date of Procedure: 01/14/20 Preoperative Diagnosis: Symptomatic cystocele and rectocele Postoperative Diagnosis: Same Procedure(s) Performed: Anterior and posterior colporrhaphys, cystoscopy Anesthesia: SILVERA Surgeon: Ivana Blanco Band Nailer #1: kAanksha Horn Estimated Blood Loss (ml): 25 IV fluids (ml): 700 Urine output (ml): 150 Pathology: none sent Condition: stable Disposition: PACU Description of Procedure: Patient is brought to the operating suite where a general anesthetic is administered after the spinal with Duramorph was placed preoperatively. Antibiotics given. The appropriate timeout was performed to assure proper patient and procedural identification. Patient is placed in the dorsal lithotomy position and the vagina and perineal bodies are all prepped and draped in usual sterile fashion. Bladder is drained for approximately 150 mL of clear yellow urine. Weighted speculum was placed into the vagina and the uterosacral cardinal ligament dimples are identified and grasped with Allis clamps. An incision is made between the clamps and Metzenbaum scissors are used in the midline to open up the anterior vaginal wall and exposed the cystocele. This was injected with dilute Pitressin solution to aid in hemostasis. Allis clamps are used to hold the mucosa and a fanlike fashion. A sponge rolled finger is used to sweep the mucosa from the underlying fascial edge. Gagnon catheter is placed. 2-0 Vicryl sutures used in an interrupted fashion to bring the fascial edges together in the midline thereby completely reducing the cystocele. Metzenbaum scissors are used to trim the mucosa and a 2-0 Vicryl issues in a running locking stitch to close the anterior vaginal wall thereby completely reducing the cystocele. The speculum is removed. A triangular portion of tissue is removed from the perineal body with a scalpel. The posterior vaginal wall is now injected with the same dilute Pitressin solution. In the midline Metzenbaum scissors are used to undermine and opened the mucosa to the apex of the defect. A sponge rolled finger is once again used to sweep the mucosa, being held by Allis clamps and a fanlike fashion, from underlying fascial plane. 2-0 Vicryl is used to bring the fascial edges together in an interrupted fashion thereby completely reducing the rectocele. Metzenbaum scissors are used to trim the redundant mucosa. 2-0 Vicryl suture is used in a running stitch, locking, to completely close the posterior vaginal wall. An episiotomy-like repair is used for final closure. The vagina is noted to be clean and dry. The cystoscope was then placed and the bladder wall is inspected. There is complete integrity noted, no defects, no bleeding, no complications. Hysteroscope was reduced. Gagnon catheter is once again placed. The vagina is packed with a 1 inch iodophor gauze. Patient is brought back to recovery room in excellent condition with stable vital signs including blood pressure 119/66, pulse 59, 100% O2 saturation.
[2020-01-14] MEDS ORDERED: KETOROLAC 15 MG/ML 1 ML VIAL IVP ONE (11:32)
[2020-01-14] MEDS ORDERED: HYDROmorphone 0.5 MG/0.5 ML SYRINGE IVP ONE (11:50)
[2020-01-14] MEDS ORDERED: SENNOSIDES-DOCUSATE SODIUM 1 EACH TAB PO SCH (21:00)
--- NOTE | 2020-01-15 06:54 | P.DS ---
Providers Date of admission: 01/14/2020 Expected date of discharge: 01/15/20 Attending physician: Ivana Blanco Primary care physician: [facility] Course: This is a 69-year-old female who presented with increasingly symptomatic pelvic organ prolapse, cystocele and rectocele. After consultation she elected surgical repair. Please see dictated history and physical for details. Patient underwent anterior and posterior colporrhaphy under my care yesterday. She did well intraoperatively, vaginal packing and Gagnon catheter placed. Please see dictated operative note for details. This morning the patient is doing well. She is voiding, ambulating and passing flatus without difficulty. Vital signs are stable and she is afebrile. Vaginal packing and Gagnon catheter has been removed. Diet and activity have been advanced. We will measure voided and post void residual, and patient is to be discharged home later today pending post void residuals. She will follow-up with me in the office in 2 weeks. She is judged to be in very good condition for discharge home. I reminded her no intercourse, tampons or douching. She will use [id number] Advil or Aleve, or Motrin as needed for pain. She will call with vaginal bleeding, with any pain not alleviated by [id number] products, or indeed with any concerns. Assessment: Doing well postoperative day #1 Patient Condition at Discharge: Good Plan - Discharge Summary Discharge Rx Participant: No New Discharge Prescriptions: No Action Levothyroxine Sodium [Synthroid] 88 mcg PO DAILY Turmeric Root Extract [Turmeric] 500 mg PO DAILY Cholecalciferol [Vitamin D3 (25 Mcg = 1000 Iu)] 2,000 unit PO DAILY Estradiol [Vagifem] 10 mcg VG SUWE Discharge Medication List Levothyroxine Sodium [Synthroid] 88 mcg PO DAILY 11/23/13 [History] Turmeric Root Extract [Turmeric] 500 mg PO DAILY 09/20/19 [History] Cholecalciferol [Vitamin D3 (25 Mcg = 1000 Iu)] 2,000 unit PO DAILY 10/03/19 [History] Estradiol [Vagifem] 10 mcg VG SUWE 10/03/19 [History] Follow up Appointment(s)/Referral(s): Ivana Blanco MD [STAFF PHYSICIAN] - 2 Weeks
--- NOTE | 2020-01-15 07:11 | P.PN ---
Progress Note - Text Progress Note Date: 01/15/20 Postoperative day 1 status post anterior and posterior repair,, and intrathecal morphine given for postoperative analgesia, patient doing well, there is no anesthesia related complications, Patient had no headache, vital signs stable , Assessment and plan= postop day 1 , doing well there is no anesthesia related complication.
[2020-01-15 07:45] VITALS: BP 96/60; PULSE 85; TEMP 98.8
[2020-01-15 10:17] VITALS: RESP 16
== END 2020-01-15 10:00 | disposition home or self-care (01) ==
LOC: OR 07:18 → 4FBP 10:59 → OR 01-15 10:00
PROVIDERS: ATTEND Obstetrics & Gynecology
DX: N81.10 Cystocele, unspecified (principal); N81.6 Rectocele; M85.80 Other specified disorders of bone density and structure, unspecified site; Z87.11 Personal history of peptic ulcer disease; E07.9 Disorder of thyroid, unspecified; Z98.51 Tubal ligation status; Z90.710 Acquired absence of both cervix and uterus; Z82.49 Family history of ischemic heart disease and other diseases of the circulatory system; Z79.890 Hormone replacement therapy; Z79.899 Other long term (current) drug therapy
CPT/HCPCS: 57260; J2250; J1100; J0690; J2405; J1885; J1170; 86850; 86900; 86901

== ENCOUNTER 2023-02-21 10:06 | Day surgery (SDC) | payer MEDICARE ==
--- NOTE | 2023-02-21 09:16 | P.GSHP ---
History of Present Illness H&P Date: 02/21/23 Chief Complaint: Right inguinal hernia 72-year-old female with history of right groin bulge. Increasing in size. More discomfort. Last seen last summer. History of previous laparoscopic right colectomy. No history of prior hernias. Past Medical History Past Medical History: Cancer, Osteoarthritis (OA), Thyroid Disorder Additional Past Medical History / Comment(s): past hx. colon polyps and colon cancer History of Any Multi-Drug Resistant Organisms: None Reported Past Surgical History: Orthopedic Surgery, Tubal Ligation Additional Past Surgical History / Comment(s): cystoscopy w/ureter surg., knee surg., ORIF wrist, colon surgery for cancer Past Anesthesia/Blood Transfusion Reactions: No Reported Reaction Smoking Status: Never smoker - Past Family History Mother Family Medical History: No Reported History Sister(s) Family Medical History: Cancer, Pulmonary Embolus Additional Family Medical History / Comment(s): breast cancer. Medications and Allergies Home Medications Medication Instructions Recorded Confirmed Type Levothyroxine Sodium [Synthroid] 88 mcg PO DAILY 11/23/13 02/17/23 History Turmeric Root Extract [Turmeric] 500 mg PO DAILY 09/20/19 02/17/23 History Cholecalciferol [Vitamin D3 (25 2,000 unit PO DAILY 10/03/19 02/17/23 History Mcg = 1000 Iu)] estradioL [Vagifem] 10 mcg VG SUWE 10/03/19 02/17/23 History Ascorbic Acid [Vitamin C] 1,000 mg PO DAILY 02/17/23 02/17/23 History Calcium Carbonate [Calcium] 600 mg PO DAILY 02/17/23 02/17/23 History Quercetin 500 mg PO DAILY 02/17/23 02/17/23 History Unk Azo 1 tab PO DAILY 02/17/23 02/17/23 History Zinc Gluconate [Zinc] 50 mg PO DAILY 02/17/23 02/17/23 History Allergies Allergy/AdvReac Type Severity Reaction Status Date / Time No Known Allergies Allergy Verified 02/17/23 15:14 Surgical - Exam Physical exam: General: Well-developed, well-nourished HEENT: Normocephalic, sclerae nonicteric Abdomen: Nontender, nondistended, reducible right inguinal hernia Extremities: No edema Neuro: Alert and oriented Assessment and Plan (1) Right inguinal hernia Narrative/Plan: 72-year-old female with right inguinal hernia. We'll proceed with laparoscopic, possible open, possible bilateral da Lisa assisted right inguinal hernia repair. Risks of bleeding, infection, recurrence, bladder and bowel injury, numbness, nerve injury, conversion to an open procedure were discussed with the patient. The patient understands and wishes to proceed. Status: Acute Code(s): K40.90 - UNIL INGUINAL HERNIA, W/O OBST OR GANGR, NOT SPCF RECUR OMED Code(s): 754019666
[~2023-02-21 10:06] MED LIST changes: +ACETAMINOPHEN TAB 500 MG TAB PO PRN; +HEPARIN SODIUM,PORCINE 5,000 UNIT/ML 1 ML VIAL SQ PRN; +LACTATED RINGERS 1,000 ML IV SCH; +fentaNYL (PF) 50 MCG/ML 2 ML AMP IVP PRN
[2023-02-21] MEDS ORDERED: MIDAZOLAM 2 MG/2 ML VIAL ONE (11:50)
[2023-02-21] MEDS ORDERED: LIDOCAINE 1% INJ 10MG/ML (20 ML MDV) ONE (11:50)
[2023-02-21] MEDS ORDERED: PHENYLEPHRINE-0.9% NACL SYG 1,000 MCG/10 ML SYRINGE ONE (11:50)
[2023-02-21] MEDS ORDERED: ROCURONIUM 10 MG/ML (5 ML VIAL) IV ONE (11:50)
[2023-02-21] MEDS ORDERED: PROPOFOL 10 MG/ML 20 ML VIAL IV ONE (11:50)
[2023-02-21] MEDS ORDERED: GLYCOPYRROLATE 0.2 MG/ML 2 ML VIAL ONE (11:50)
[2023-02-21] MEDS ORDERED: fentaNYL (PF) 50 MCG/ML 2 ML AMP ONE (11:50)
[2023-02-21] MEDS ORDERED: NEOSTIGMINE 1 MG/ML 10 ML VIAL ONE (11:50)
[2023-02-21] MEDS ORDERED: SUCCINYLCHOLINE CHLORIDE 200 MG/10 ML VIAL IV ONE (11:50)
[2023-02-21] MEDS ORDERED: BUPIVACAINE (PF) 0.25% 30 ML VIAL SQ ONE (12:14)
--- NOTE | 2023-02-21 13:57 | P.OP ---
Date of Procedure: 02/21/23 Procedure(s) Performed: PREOPERATIVE DIAGNOSIS: Ware inguinal hernia POSTOPERATIVE DIAGNOSIS: Same PROCEDURE: Laparoscopic da Lisa assisted repair right direct, femoral and obturator hernia with mesh SURGEON: Dr. Hansen ANESTHESIA: General OPERATIVE PROCEDURE DETAILS: Patient was placed in the operating table in the supine position. The patient was placed under general anesthesia. The abdomen was prepped and draped in usual sterile fashion. A small curvilinear supraumbilical incision was made. The fascia was retracted anteriorly with [place] forceps. The Veress needle was inserted. The saline drop test was normal. Insufflation took place to 15 mmHg. An 8 mm trocar was placed into the peritoneal cavity. 2 additional 8 mm trochars were placed in the right upper quadrant and left upper quadrant under visualization. The robotic arms were then brought in and docked into place. The fenestrated bipolar was used in the left arm and the laparoscopic bigg was utilized in the right arm. A 30 8 mm scope was used in the up position. The peritoneal cavity was inspected. The patient moderate sized femoral hernia on the right-hand side. There was a small direct hernia adjacent to this. Later during our dissection we identified a small less than 1 cm obturator hernia as well that was included into our dissection and repair. The peritoneum was incised in a horizontal fashion cephalad to the internal inguinal ring. Following that careful dissection of the preperitoneal space took place. This took place using both electrocautery, sharp dissection but primarily blunt dissection. Visualization of the pubic tubercle and Corbin's ligament took place medially. Full dissection took place laterally as well. The hernia sacs were dissected. Once we had adequate space the [id number] Progrip mesh was advanced into the preperitoneal space and flattened out appropriately to cover all potential hernia sites. A 30V lock suture was used to secure the mesh to the Corbin's ligament extending medially to the pubic tubercle and then anteriorly along the abdominal wall. The peritoneal defect was then closed using a absorbable 2-0 VLok suture. The hernia sac was incorporated and closed with the peritoneal closure to help prevent future recurrence. The pneumoperitoneum was then evacuated. The skin of all 3 sites was closed using a 4-0 Monocryl stitch. Skin glue was then applied. TYPE OF MESH USED: Progrip LOCATION OF MESH: Preperitoneal FIXATION: 30 absorbable the lock PREOPERATIVE DISCUSSION ON SMOKING CESSASTION: Yes PREOPERATIVE DISCUSSION ON MORBID OBESITY: Yes PREOPERATIVE DISCUSSION ON APPROPRIATE USE OF NARCOTIC USE: Yes PREOPERATIVE EDUCATION: Multi Modal, Smoking Cessation and Weight Loss with BMI over 35. DISPOSITION: Stable to recovery room
[2023-02-21 14:00] VITALS: TEMP 98.1
[2023-02-21 15:38] VITALS: RESP 16
[2023-02-21 16:26] VITALS: BP 108/58; PULSE 58
[2023-02-21] MEDS ORDERED: ACETAMINOPHEN TAB 325 MG TAB PO SCH (17:00)
[2023-02-21] MEDS ORDERED: IBUPROFEN 600 MG TAB PO SCH (20:00)
== END 2023-02-21 16:51 | disposition home or self-care (01) ==
LOC: OR 10:06
PROVIDERS: ATTEND Surgery
DX: K40.90 Unilateral inguinal hernia, without obstruction or gangrene, not specified as recurrent (principal); E07.9 Disorder of thyroid, unspecified; M19.90 Unspecified osteoarthritis, unspecified site; Z79.890 Hormone replacement therapy; Z85.038 Personal history of other malignant neoplasm of large intestine; Z90.49 Acquired absence of other specified parts of digestive tract; Z79.899 Other long term (current) drug therapy
CPT/HCPCS: 49650; S2900

== ENCOUNTER 2023-11-01 10:44 | Day surgery (SDC) | payer MEDICARE ==
[2023-10-27 11:34] VITALS: BMI 20.3
[2023-11-01 11:09] VITALS: TEMP 97.6
[2023-11-01] MEDS: IV FLUID CONTINUATION 1,000 ML IV ONE (11:15)
[2023-11-01] MEDS: LACTATED RINGERS 1,000 ML IV SCH (11:15)
[2023-11-01] MEDS ORDERED: LIDOCAINE 1% INJ 10MG/ML (20 ML MDV) ONE (11:35)
[2023-11-01] MEDS ORDERED: PROPOFOL 10 MG/ML 20 ML VIAL IV ONE (11:35)
--- NOTE | 2023-11-01 11:43 | P.GSHP ---
History of Present Illness H&P Date: 11/01/23 Chief Complaint: Colon cancer screening with personal history of colon cancer 73-year-old female has a history of colon cancer right colon 4 years ago. Patient had a right colectomy. She had a repeat colonoscopy 3 years ago that was normal. No bowel complaints currently. Past Medical History Past Medical History: Cancer, Osteoarthritis (OA), Thyroid Disorder Additional Past Medical History / Comment(s): past hx. colon polyps and colon cancer History of Any Multi-Drug Resistant Organisms: None Reported Past Surgical History: Bowel Resection, Orthopedic Surgery, Tubal Ligation Additional Past Surgical History / Comment(s): cystoscopy w/ureter surg., knee surg., ORIF wrist, colon surgery for cancer Past Anesthesia/Blood Transfusion Reactions: No Reported Reaction Additional Past Anesthesia/Blood Transfusion Reaction / Comment(s): no blood transfusion Smoking Status: Never smoker - Past Family History Mother Family Medical History: No Reported History Sister(s) Family Medical History: Cancer, Pulmonary Embolus Additional Family Medical History / Comment(s): breast cancer. Medications and Allergies Home Medications Medication Instructions Recorded Confirmed Type Levothyroxine Sodium [Synthroid] 88 mcg PO DAILY 11/23/13 10/27/23 History Turmeric Root Extract [Turmeric] 500 mg PO DAILY 09/20/19 10/27/23 History Cholecalciferol [Vitamin D3 (25 2,000 unit PO DAILY 10/03/19 10/27/23 History Mcg = 1000 Iu)] estradioL [Vagifem] 10 mcg VG SUWE 10/03/19 10/27/23 History Ascorbic Acid [Vitamin C] 1,000 mg PO DAILY 02/17/23 10/27/23 History Calcium Carbonate [Calcium] 600 mg PO WEEKLY 02/17/23 10/27/23 History Unk Azo 1 tab PO DAILY 02/17/23 10/27/23 History Zinc Gluconate [Zinc] 50 mg PO DAILY 02/17/23 10/27/23 History Allergies Allergy/AdvReac Type Severity Reaction Status Date / Time No Known Allergies Allergy Verified 11/01/23 11:03 Surgical - Exam Vital Signs Temp Pulse Resp BP Pulse Ox 97.6 F 70 18 130/72 95 11/01/23 11:08 11/01/23 11:08 11/01/23 11:08 11/01/23 11:08 11/01/23 11:08 Physical exam: General: Well-developed, well-nourished HEENT: Normocephalic, sclerae nonicteric Abdomen: Nontender, nondistended Extremities: No edema Neuro: Alert and oriented Assessment and Plan (1) History of colon cancer Narrative/Plan: Will proceed with colonoscopy at this time. Current Visit: Yes Status: Acute Code(s): Z85.038 - PERSONAL HISTORY OF MALIGNANT NEOPLASM OF LARGE INTESTINE SNOMED Code(s): 433716469
--- NOTE | 2023-11-01 11:57 | P.PCN ---
Date of Procedure: 11/01/23 Procedure(s) Performed: PREOPERATIVE DIAGNOSIS: History of colon cancer POSTOPERATIVE DIAGNOSIS: Diverticulosis PROCEDURE: Colonoscopy ANESTHESIA: MAC SURGEON: Paulo Hansen M.D. SPECIMENS: None ENDOSCOPIC PROCEDURE: The patient was placed on the endoscopy table in the left decubitus position. The Olympus colonoscope was inserted into the anus and passed under direct visualization to the right colon. There was distortion of the colon at the suspected site of the anastomosis. I could not visualize a definite staple line however. We could not advance the scope any further at this point and it appeared that I could visualize a small opening into the small bowel at the corner of our visualization. Attempts were made to pass the scope more proximal and these were unsuccessful. The scope was slowly withdrawn. No abnormalities were noted throughout the transverse descending sigmoid and colon. The patient had mild scattered diverticulosis. Digital rectal examination was normal. The patient was taken to the recovery room in stable condition per anesthesia guidelines. RECOMMENDATIONS: Resume diet. Repeat colonoscopy in 3 to 5 years given the personal history of colon cancer in a polyp.
[2023-11-01 12:00] VITALS: RESP 16
[2023-11-01 12:18] VITALS: BP 109/76; PULSE 73
== END 2023-11-01 12:41 | disposition home or self-care (01) ==
LOC: ORWHC2ENDO 10:44
PROVIDERS: ATTEND Surgery
DX: Z85.038 Personal history of other malignant neoplasm of large intestine